=== PATIENT | male | born 1935 | race Caucasian/White ===

== ENCOUNTER → 2016-04-29 | Day surgery (SDC) | payer OTHER ==
[2016-04-23 07:38] VITALS: Ht 177.8 cm; Wt 93.2 kg
[~2016-04-29] VITALS: Ht 177.8 cm; Wt 93.2 kg
[~2016-04-29] MED LIST: 500ML BSS 0.3ML EPI 1:1000PF IRRIG ONE; ACETAMINOPHEN 325 MG TAB PO PRN; AMVISC PLUS 0.8ML SYRINGE INT OCU ONE; ATROPINE SULFATE 0.1 MG/ML 5ML SYR IV PRN; BROM0.0911 OPL; BSS FLUSH ONE; ENDOCOAT 0.85ML SYRINGE INT OCU ONE; EpHEDrine SULFATE INJ 50 MG/ML AMP IV PRN; EpINEphrine INJ 1MG/ML AMP 1 MG/ML AMP ONE; FENTANYL CITRATE INJ 50 MCG/1 ML 2 ML VIAL ONE; GLUCTAB18 PO; LACTATED RINGER'S 1000ML 500 ML IV SCH; LIDOCAINE 4% OP SOLN DROP CHARGE ONE; LIDOCAINE 4% OP SOLN DROP CHARGE OPL SCH; LIDOCAINE HCL 1% MPF 2 ML VIAL ONE; LISI40TA PO; MIDAZOLAM HCL 1 MG/ML 2ML VIAL ONE; MIX: 4ML BSS 1ML EPI 1:1000 PF TOP ONE; MOXIFLOXACIN OPH SOLN PER DROP CHARGE ONE; OFLO0.3S OP; POVIDONE-IODINE OP SOLN 30 ML BTL ONE; PRED1SUS3 OPL; PROPARACAINE 0.5% OP SOLN PER DROP CHARGE OPL SCH; RIVA1TAB4 PO; SIMV40TA2 PO; TOBRAMYCIN/DEXAMETHASONE OPH OINT PER APPLN CHARGE ONE; [UNRECOGNIZED DRUG - CODE] PO
[2016-04-29] MEDS: PHENYLEPHRINE HCL 2.5% OP SOLN PER DROP CHARGE OPL SCH ×3 (06:38→06:48)
[2016-04-29] MEDS: TROPICAMIDE 1% OP SOLN PER DROP CHARGE OPL SCH ×3 (06:39→06:50)
[2016-04-29] MEDS: CYCLOPENTOLATE HCL 1% OP SOLN PER DROP CHARGE OPL SCH ×3 (06:40→06:52)
--- NOTE | 2016-04-29 06:40 | History & Physical Bridge - [place] ---
H&P Re-Evaluation Bridge Note: I have examined the patient, reviewed the History & Physical and in the interval since the performance of the History & Physical I have noted the following changes of clinical significance: No changes noted
[2016-04-29] MEDS: MOXIFLOXACIN OPH SOLN PER DROP CHARGE OPL SCH ×3 (06:41→06:53)
--- NOTE | 2016-04-29 07:31 | [facility] Post Operative Brief Note ---
Immediate Operative Summary Operative Date Apr 29, 2016. Pre-Operative Diagnosis Left Eye Cataract Post-Operative Diagnosis Same Procedure(s) Performed Left Cataract Phacoemulsification With Intraocular Lens Implant Surgeon Dr Garcia Senior Marketing Coordinator Surgeon(s) None Estimated Blood Loss 0ml Findings left cataract Specimens None Complication(s) None Disposition
[2016-04-29 07:32] VITALS: TEMP 36.9
--- NOTE | 2016-04-29 07:32 | [facility] Operative Report ---
Operative Report Phaco with monofocal IOL DATE OF OPERATION: 04/29/16 PREOPERATIVE DIAGNOSIS: Senile nuclear cataract, left eye POSTOPERATIVE DIAGNOSIS: Senile nuclear cataract, left eye PROCEDURE PERFORMED: Phacoemulsification with intraocular lens implantation, left eye SURGEON: Dr. Rip Garcia ANESTHESIA: Topical with 1% intracameral lidocaine and monitored anesthesia care COMPLICATIONS: None DESCRIPTION OF PROCEDURE: After positively identifying the patient both verbally and by wristband in the preoperative area, the left eye was marked as the operative eye. The patient was then brought back to the operating room by the anesthesia and nursing staff where they were given a drop of Lidocaine and betadine into the operative eye. They were then sterilely prepped and draped in the standard fashion typical for ophthalmic surgery. Steri-strips were placed along the upper eyelids to keep the lashes back, and a lid speculum was placed into the operative eye. At this point, a documented time out was performed with members of the ophthalmology, nursing, and anesthesia staffs all agreeing upon the correct patient, correct location for surgery, correct procedure, and correct type and power of intraocular lens to be implanted. The microscope was then swung into position. First, a paracentesis wound was made using a sideport blade. Then, in sequence, 1% preservative-free lidocaine followed by Endocoat viscoelastic was injected into the anterior chamber. Next , the main incision was made with a keratome blade in triplanar fashion. A sharp cystotome was introduced into the eye and used to create a tear in the anterior capsule, which was directed into a continuous curvilinear capsulorrhexis using Utrata forceps. Hydrodissection was then performed with BSS on a flat-tip cannula. Next, the phacoemulsification handpiece was introduced into the eye and used to remove the nucleus in a [id number] fashion. This was done without complication and then the irrigation-aspiration handpiece was introduced into the eye and used to remove all remaining cortical and epinuclear material. Amvisc was then injected into the anterior chamber as well as into the capsular bag and using the lens injector system, an MX60 18.0 D lens, serial number [id number], and expiration date 05/2017 was injected into the capsular bag and rotated into the correct position. Next, the irrigation- aspiration handpiece was used to remove all remaining Amvisc. BSS was used to hydrate the main wound, and then BSS was injected into the paracentesis site to reach physiologic pressure and then the main wound was checked and found to be watertight. The patient was given drops of Vigamox and Tobradex ointment into the operative eye, and then the surrounding area was cleaned and dried. A clear plastic shield was placed over the eye and the patient was then sat up and taken from the operating room by the anesthesia staff having tolerated the procedure well and suffering no complications. DISPOSITION: The patient was returned to the recovery room in stable condition. I attest to the content of the Intraoperative Record and any orders documented therein. Any exceptions are noted below.
--- NOTE | 2016-04-29 07:33 | Discharge Instructions-SurgCtr ---
Discharge Instructions Visit Reason for Visit: Cataract Left Eye Discharge Discharge Diagnosis / Problem: left cataract Discharge Goals Goal(s): Decrease discomfort, Improve function Activity Recommendations Activity Limitations: as noted below Anesthesia . Post Anesthesia Instructions: If you have had General Anesthesia or IV Sedation: * Do not drive today. * Resume driving when surgeon permits. * Do not make important decisions or sign legal documents today. * Call surgeon for: 1. Temperature elevations greater than 101 degrees F. 2. Uncontrollable pain. 3. Excessive bleeding. 4. Persistent nausea and vomiting. 5. Medication intolerance (nausea, vomiting or rash). * For nausea and vomiting use only clear liquids such as: tea, soda, bouillon until nausea subsides, then gradually increase diet as tolerated. * If you have any concerns or questions, call your surgeon's office. If physician is unavailable and it is an emergency, call 911 or go to the nearest emergency room. . Instructions / Follow-Up Instructions / Follow-Up ACTIVITY RECOMMENDATIONS: * Light activities. * You may walk outside, read, watch television. * You may notice redness on the white part of the eye and some blurry vision - this is normal. MEDICATIONS: Resume previous medications unless instructed otherwise by your surgeon. Start all eye drops at 9:30 am today: * Eye drops (today): Prednisone - one drop in operative eye every 2 hours while awake Ofloxacin - one drop in operative eye every 2 hours while awake Bromfenac - one drop in operative eye daily SPECIAL CARE INSTRUCTIONS: * Tape plastic shield over eye to sleep at night. Call your doctor at with any concerns or problems. FOLLOW UP VISIT: Follow-up with Dr Garcia at [facility] as scheduled. Diet Recommendations Home Diet: no limitations Procedures Procedures Performed: Left Cataract Phacoemulsification With Intraocular Lens Implant Pending Studies Studies pending at discharge: no Medical Emergencies . Who to Call and When: Medical Emergencies: If at any time you feel your situation is an emergency, please call 911 immediately. . Non-Emergent Contact Non-Emergency issues call your: Surgeon . . "Provider Documentation" section prepared by Rip Garcia.
[2016-04-29 07:52] VITALS: BP 151/78; PULSE 76; O2SAT 98
--- NOTE | 2016-04-29 08:01 | Anesthesia Progress Nt - [facility] ---
Anesthesia Post Op Note Date & Time Apr 29, 2016 at 08:01 Vital Signs Pain Intensity: 0 Vital Signs Past 12 Hours Date Time Temp Pulse Resp B/P Pulse Ox O2 Delivery O2 Flow Rate FiO2 04/29/16 07:52 76 16 151/78 98 Room Air 04/29/16 07:32 36.9 74 16 143/84 95 Room Air 04/29/16 06:28 36.2 84 18 171/98 95 Room Air Notes Mental Status: alert / awake / arousable, participated in evaluation Pt Amnestic to Procedure: Yes Nausea / Vomiting: adequately controlled Pain: adequately controlled Airway Patency, RR, SpO2: stable & adequate BP & HR: stable & adequate Hydration State: stable & adequate Anesthetic Complications: no major complications apparent
== END | disposition home or self-care (01) ==
LOC: X.SURG 06:18
PROVIDERS: ATTEND Ophthalmology
DX: H25.12 Age-related nuclear cataract, left eye (principal); H35.30 Unspecified macular degeneration; I10 Essential (primary) hypertension; E78.5 Hyperlipidemia, unspecified; Z98.890 Other specified postprocedural states

== ENCOUNTER → 2016-05-13 | Day surgery (SDC) | payer OTHER ==
[2016-05-07 15:14] VITALS: Ht 177.8 cm; Wt 93.2 kg
[~2016-05-13] VITALS: Ht 177.8 cm; Wt 93.2 kg
[~2016-05-13] MED LIST changes: -FENTANYL CITRATE INJ 50 MCG/1 ML 2 ML VIAL ONE; -LIDOCAINE 4% OP SOLN DROP CHARGE OPL SCH; +LIDOCAINE 4% OP SOLN DROP CHARGE OPR SCH; -OFLO0.3S OP; -PROPARACAINE 0.5% OP SOLN PER DROP CHARGE OPL SCH; +PROPARACAINE 0.5% OP SOLN PER DROP CHARGE OPR SCH
[2016-05-13] MEDS: PHENYLEPHRINE HCL 2.5% OP SOLN PER DROP CHARGE OPR SCH ×3 (07:12→07:22)
[2016-05-13] MEDS: TROPICAMIDE 1% OP SOLN PER DROP CHARGE OPR SCH ×3 (07:13→07:23)
[2016-05-13] MEDS: CYCLOPENTOLATE HCL 1% OP SOLN PER DROP CHARGE OPR SCH ×3 (07:14→07:24)
[2016-05-13] MEDS: MOXIFLOXACIN OPH SOLN PER DROP CHARGE OPR SCH ×3 (07:15→07:25)
--- NOTE | 2016-05-13 08:51 | [facility] Operative Report ---
Operative Report Phaco with monofocal IOL DATE OF OPERATION: 05/13/16 PREOPERATIVE DIAGNOSIS: Senile nuclear cataract, right eye POSTOPERATIVE DIAGNOSIS: Senile nuclear cataract, right eye PROCEDURE PERFORMED: Phacoemulsification with intraocular lens implantation, right eye SURGEON: Dr. Rip Garcia ANESTHESIA: Topical with 1% intracameral lidocaine and monitored anesthesia care COMPLICATIONS: None DESCRIPTION OF PROCEDURE: After positively identifying the patient both verbally and by wristband in the preoperative area, the right eye was marked as the operative eye. The patient was then brought back to the operating room by the anesthesia and nursing staff where they were given a drop of Lidocaine and betadine into the operative eye. They were then sterilely prepped and draped in the standard fashion typical for ophthalmic surgery. Steri-strips were placed along the upper eyelids to keep the lashes back, and a lid speculum was placed into the operative eye. At this point, a documented time out was performed with members of the ophthalmology, nursing, and anesthesia staffs all agreeing upon the correct patient, correct location for surgery, correct procedure, and correct type and power of intraocular lens to be implanted. The microscope was then swung into position. First, a paracentesis wound was made using a sideport blade. Then, in sequence, 1% preservative-free lidocaine followed by Endocoat viscoelastic was injected into the anterior chamber. Next , the main incision was made with a keratome blade in triplanar fashion. A sharp cystotome was introduced into the eye and used to create a tear in the anterior capsule, which was directed into a continuous curvilinear capsulorrhexis using Utrata forceps. Hydrodissection was then performed with BSS on a flat-tip cannula. Next, the phacoemulsification handpiece was introduced into the eye and used to remove the nucleus in a [id number]-[id number] fashion. This was done without complication and then the irrigation-aspiration handpiece was introduced into the eye and used to remove all remaining cortical and epinuclear material. Amvisc was then injected into the anterior chamber as well as into the capsular bag and using the lens injector system, an MX60 18.0 D lens, serial number [id number], and expiration date 09/2018 was injected into the capsular bag and rotated into the correct position. Next, the irrigation- aspiration handpiece was used to remove all remaining Amvisc. BSS was used to hydrate the main wound, and then BSS was injected into the paracentesis site to reach physiologic pressure and then the main wound was checked and found to be watertight. The patient was given drops of Vigamox and Tobradex ointment into the operative eye, and then the surrounding area was cleaned and dried. A clear plastic shield was placed over the eye and the patient was then sat up and taken from the operating room by the anesthesia staff having tolerated the procedure well and suffering no complications. DISPOSITION: The patient was returned to the recovery room in stable condition. I attest to the content of the Intraoperative Record and any orders documented therein. Any exceptions are noted below.
--- NOTE | 2016-05-13 08:51 | [facility] Post Operative Brief Note ---
Immediate Operative Summary Operative Date May 13, 2016. Pre-Operative Diagnosis Right Eye Cataract Post-Operative Diagnosis Same Procedure(s) Performed Right Cataract Phacoemulsification With Intraocular Lens Implant Surgeon Dr Garcia Industrial Roof Plumber Surgeon(s) None Estimated Blood Loss 0ml Findings right cataract Specimens None Complication(s) None Disposition
[2016-05-13 08:52] VITALS: TEMP 36.6
--- NOTE | 2016-05-13 08:53 | Discharge Instructions-SurgCtr ---
Discharge Instructions Visit Reason for Visit: Cataract Right Eye Discharge Discharge Diagnosis / Problem: right cataract Discharge Goals Goal(s): Decrease discomfort, Improve function Activity Recommendations Activity Limitations: as noted below Anesthesia . Post Anesthesia Instructions: If you have had General Anesthesia or IV Sedation: * Do not drive today. * Resume driving when surgeon permits. * Do not make important decisions or sign legal documents today. * Call surgeon for: 1. Temperature elevations greater than 101 degrees F. 2. Uncontrollable pain. 3. Excessive bleeding. 4. Persistent nausea and vomiting. 5. Medication intolerance (nausea, vomiting or rash). * For nausea and vomiting use only clear liquids such as: tea, soda, bouillon until nausea subsides, then gradually increase diet as tolerated. * If you have any concerns or questions, call your surgeon's office. If physician is unavailable and it is an emergency, call 911 or go to the nearest emergency room. . Instructions / Follow-Up Instructions / Follow-Up ACTIVITY RECOMMENDATIONS: * Light activities. * You may walk outside, read, watch television. * You may notice redness on the white part of the eye and some blurry vision - this is normal. MEDICATIONS: Resume previous medications unless instructed otherwise by your surgeon. Start all eye drops at 11 am today: * Eye drops (today): Prednisone - one drop in operative eye every 2 hours while awake Ofloxacin - one drop in operative eye every 2 hours while awake Bromfenac - one drop in operative eye daily SPECIAL CARE INSTRUCTIONS: * Tape plastic shield over eye to sleep at night. Call your doctor at with any concerns or problems. FOLLOW UP VISIT: Follow-up with Dr Garcia at [facility] as scheduled. Diet Recommendations Home Diet: no limitations Procedures Procedures Performed: Right Cataract Phacoemulsification With Intraocular Lens Implant Pending Studies Studies pending at discharge: no Medical Emergencies . Who to Call and When: Medical Emergencies: If at any time you feel your situation is an emergency, please call 911 immediately. . Non-Emergent Contact Non-Emergency issues call your: Surgeon . . "Provider Documentation" section prepared by Rip Garcia.
[2016-05-13 09:05] VITALS: BP 156/81; PULSE 69; O2SAT 95
--- NOTE | 2016-05-13 09:17 | Anesthesia Progress Nt - [facility] ---
Anesthesia Post Op Note Date & Time May 13, 2016 at 09:17 Vital Signs Pain Intensity: 0 Vital Signs Past 12 Hours Date Time Temp Pulse Resp B/P Pulse Ox O2 Delivery O2 Flow Rate FiO2 05/13/16 09:05 69 16 156/81 95 Room Air 05/13/16 08:52 36.6 74 20 155/77 95 Room Air 05/13/16 07:06 36.5 75 20 179/91 94 Room Air Notes Mental Status: alert / awake / arousable, participated in evaluation Pt Amnestic to Procedure: Yes Nausea / Vomiting: adequately controlled Pain: adequately controlled Airway Patency, RR, SpO2: stable & adequate BP & HR: stable & adequate Hydration State: stable & adequate Anesthetic Complications: no major complications apparent
== END | disposition home or self-care (01) ==
LOC: X.SURG 06:43
PROVIDERS: ATTEND Ophthalmology
DX: H25.11 Age-related nuclear cataract, right eye (principal); Z98.42 Cataract extraction status, left eye; H35.30 Unspecified macular degeneration; I10 Essential (primary) hypertension; E78.5 Hyperlipidemia, unspecified

== ENCOUNTER → 2016-09-15 | Outpatient (CLI) | payer OTHER ==
[~2016-09-15] MED LIST changes: -500ML BSS 0.3ML EPI 1:1000PF IRRIG ONE; -ACETAMINOPHEN 325 MG TAB PO PRN; -AMVISC PLUS 0.8ML SYRINGE INT OCU ONE; -ATROPINE SULFATE 0.1 MG/ML 5ML SYR IV PRN; -BSS FLUSH ONE; -ENDOCOAT 0.85ML SYRINGE INT OCU ONE; -EpHEDrine SULFATE INJ 50 MG/ML AMP IV PRN; -EpINEphrine INJ 1MG/ML AMP 1 MG/ML AMP ONE; -LACTATED RINGER'S 1000ML 500 ML IV SCH; -LIDOCAINE 4% OP SOLN DROP CHARGE ONE; -LIDOCAINE 4% OP SOLN DROP CHARGE OPR SCH; -LIDOCAINE HCL 1% MPF 2 ML VIAL ONE; -MIDAZOLAM HCL 1 MG/ML 2ML VIAL ONE; -MIX: 4ML BSS 1ML EPI 1:1000 PF TOP ONE; -MOXIFLOXACIN OPH SOLN PER DROP CHARGE ONE; -POVIDONE-IODINE OP SOLN 30 ML BTL ONE; -PROPARACAINE 0.5% OP SOLN PER DROP CHARGE OPR SCH; -TOBRAMYCIN/DEXAMETHASONE OPH OINT PER APPLN CHARGE ONE
[2016-09-15 12:27] LABS: BASO % 0.6 %; BASO ABS # 0.03 K/uL (0-0.2); COMPLETE YES; EOS % 6.2 %; HEMATOCRIT 41.4 % (42-52); IG% 0.2 %; LYMPH % 25.4 %; LYMPH ABS # 1.36 K/uL (1.2-3.4); MEAN CELL VOLUME 89.8 fL (80-100); MEAN CORPUSCULAR HEMOGLOBIN 29.9 pg (25-34); MEAN CORPUSCULAR HGB CONC 33.3 g/dl (32-36); MONO % 10.6 %; PLATELET COUNT 218 K/uL (130-400); RED BLOOD COUNT 4.61 M/uL (4.7-6.1); WHITE BLOOD COUNT 5.36 K/uL (4.8-10.8)
[2016-09-15 13:18] LABS: ESTIMATED AVERAGE GLUCOSE 114 mg/dl; HA1C FLAG Normal (Normal)
[2016-09-15 13:32] LABS: ALT/SGPT 22 U/L (12-78); AST/SGOT 13 U/L (15-37); BLOOD UREA NITROGEN 25 mg/dl (7-18); BUN/CREATININE RATIO 23.1 (10-20); CALCIUM 8.6 mg/dl (8.5-10.1); CARBON DIOXIDE 24 mmol/L (21-32); CHLORIDE 110 mmol/L (98-107); GLUCOSE 96 mg/dl (70-99); POTASSIUM 4.3 mmol/L (3.5-5.1); SODIUM 144 mmol/L (136-145)
[2016-09-15 13:43] LABS: ALB/GLOB RATIO 1.3 (0.9-2); ALKALINE PHOSPHATASE 53 U/L (45-117); CHOLESTEROL 169 mg/dl (0-200); HDL CHOLESTEROL 56 mg/dl; LDL CHOLESTEROL CALCULATED 97 mg/dl; THYROID STIMULATING HORMONE 0.884 uIu/ml (0.300-4.500); TRIGLYCERIDES 78 mg/dl (0-150); VERY LOW DENSITY LIPOPROT CALC 16 mg/dl
--- NOTE | 2016-09-22 13:04 | CODING QUERY MEDICAL NECESSITY ---
SUPPORTING DIAGNOSIS NEEDED A supporting diagnosis is required for the test/procedure performed on this patient in order for us to be reimbursed by the patient's insurance. Please provide a supporting diagnosis for the following test/procedure listed below next to the test name along with your signature. *If there is no additional diagnosis for this patient that would support the following test/procedure please document that below next to the test/procedure. Test(s)/Procedure(s) that require a supporting diagnosis: * HEMOGLOBIN A1C DIAGNOSIS: Provider Signature: Date: Thank you Geneva Pulliam PHD [employer] Once completed, please kindly fax back to [phone] For questions please call [phone]
== END | disposition home or self-care (01) ==
LOC: C.LABPBG 09:14
PROVIDERS: ATTEND Internal Medicine
DX: R91.8 Other nonspecific abnormal finding of lung field (principal); Z13.1 Encounter for screening for diabetes mellitus

== ENCOUNTER 2019-04-28 03:46 | Inpatient (IN) ==
[2019-04-28] MEDS ORDERED: LABETALOL HCL IV 5 MG/ML 20ML IV STA ×3 (03:53→05:31)
[2019-04-28] MEDS ORDERED: SODIUM CHLORIDE 0.9% 1000ML 1,000 ML IV SCH (04:00)
[2019-04-28 04:11] LABS: Hematocrit (blood only) 43.1 % (42-52); Hemoglobin 14.6 g/dL (14.0-18.0); Mean Corpuscular Hemoglobin 30.1 pg (25-34); Mean Corpuscular Hgb Conc 33.9 g/dL (32-36); Mean Corpuscular Volume 88.9 fL (80-100); Mean Platelet Volume 9.9 fL (7.4-10.4); Platelet Count 213 K/uL (130-400); RDW Standard Deviation 42.1 fL (36.4-46.3); Red Blood Count 4.85 M/uL (4.7-6.1); White Blood Count 12.97 K/uL (4.8-10.8)
[2019-04-28 04:23] LABS: Base Excess VBG -2.2 mEq/L; Oxygen Saturation VBG 68.6 %; pH VBG 7.3 (7.36-7.41)
[2019-04-28 04:25] LABS: Partial Thromboplastin Ratio 0.8; Partial Thromboplastin Time 21.9 Seconds (21.0-31.0); Prothrombin Time 10.2 Seconds (9.0-12.0)
[2019-04-28 04:30] LABS: Appearance Urine Clear (Clear); Bacteria Urine Automated Negative (Negative); Bilirubin Urine Negative (Negative); Blood Urine 1+ (Negative); Color Urine Yellow; Glucose Urine UA 1+ (Negative); Ketones Urine Negative (Negative); Leukocyte Esterase Urine Negative (Negative); Nitrite Urine Negative (Negative); Protein Urine 2+ (Negative); RBC Urine Automated 0-4 /hpf (0-4); Specific Gravity Urine 1.012 (1.000-1.030); Urobilinogen Urine Negative (Negative)
[2019-04-28 04:34] LABS: Alanine Aminotransferase 23 U/L (12-78); Albumin Level 3.8 gm/dl (3.4-5.0); Aspartate Aminotransferase 19 U/L (15-37); BUN Creatinine Ratio 20.5 (10-20); Blood Urea Nitrogen 24 mg/dl (7-18); Calcium 8.3 mg/dl (8.5-10.1); Carbon Dioxide 25 mmol/L (21-32); Chloride 109 mmol/L (98-107); Est GFR (African American) 65.5; Est GFR (Non-African American) 56.5; Glucose 139 mg/dl (70-99); Magnesium 2.1 mg/dl (1.8-2.4); Potassium 3.9 mmol/L (3.5-5.1); Sodium 140 mmol/L (136-145)
[2019-04-28 04:38] LABS: Basophils # (auto) 0.02 K/uL (0-0.2); Basophils % (auto) 0.2 %; Eosinophils # (auto) 0.07 K/uL (0-0.5); Eosinophils % (auto) 0.5 %; Immature Granulocytes # (auto) 0.04 K/uL (0.00-0.02); Immature Granulocytes % (auto) 0.3 %; Lymphocytes # (auto) 0.86 K/uL (1.2-3.4); Lymphocytes % (auto) 6.6 %; Monocytes # (auto) 0.79 K/uL (0.11-0.59); Monocytes % (auto) 6.1 %; Neutrophils # (auto) 11.19 K/uL (1.4-6.5); Neutrophils % (auto) 86.3 %; Ovalocytes 1+
[2019-04-28 04:39] LABS: Albumin Globulin Ratio 1.1 (0.9-2); Alkaline Phosphatase 56 U/L (45-117); Bilirubin,Total 0.5 mg/dl (0.2-1); Creatine Kinase 111 U/L (39-308); Globulin 3.5 gm/dl (2.5-4.0); Total Protein 7.3 gm/dl (6.4-8.2); Troponin I 0.029 ng/ml (0-0.045)
[2019-04-28 04:46] LABS: Amphetamines+Metham, Urine Neg (Neg); Barbiturates, Urine Neg (Neg); Benzodiazepine, Urine Neg (Neg); Cocaine, Urine Neg (Neg); MDMA (Ecstacy), Urine Neg (Neg); Methadone, Urine Neg (Neg); Opiate, Urine Neg (Neg); Phencyclidine, Urine Neg (Neg)
[2019-04-28] MEDS ORDERED: LORazepam 0.5 MG/1 ML VIAL IV STA (05:12)
[2019-04-28] MEDS ORDERED: ONDANSETRON INJ 2 MG/ML 2 ML VIAL IV STA (05:12)
--- NOTE | 2019-04-28 05:19 | Emergency Department Note ---
Entered by Riky Mccoy acting as a scribe for History of Present Illness General Chief complaint: Altered Mental Status Stated complaint: ALTERED MENTAL STATUS Time Seen by Provider: 04/28/19 03:53 Source: EMS Limitations: altered mental status History of Present Illness Onset (ago): day(s) (this morning) Location: head Pain Consistency: + constant Exacerbated By: + other (AMS) Associated symptoms: + other (Positive for vomiting and chills.) The patient is an 83 year old male who presents to the emergency department with complaints of constant AMS beginning this morning. Per EMS, the patient was found lying on his right side on the bathroom floor this morning. He states that the patients last saw him at 2300 last night, and he notes that the patients is unsure how long he was on the ground after he fell. He reports that the patient was found to be altered, and he states that the patient vomited twice. He notes that the patient had the chills yesterday. He reports that the patient is on Xarelto. He reports that the patient has a history of Parkinsons and hypertension. HPI limited secondary to AMS. Home Medications Home Medications Medication Instructions Recorded Confirmed Type lisinopril 40 mg tablet 40 mg PO DAILY #90 tab 10/14/18 04/28/19 Rx bisoprolol 5 1 tab PO DAILY #90 tab 10/26/18 04/28/19 Rx mg-hydrochlorothiazide 6.25 mg tablet simvastatin 40 mg tablet 40 mg PO DAILY #90 tab 10/28/18 04/28/19 Rx rivaroxaban 20 mg tablet 20 mg PO DAILY #90 tab 01/23/19 04/28/19 Rx Allergies Allergy/AdvReac Type Severity Reaction Status Date / Time No Known Allergies Allergy Unverified 04/28/19 04:02 Past Med/Surg History Medical History (Updated 04/28/19 @ 10:26 by BARTOLO Payton) Benign essential tremor Bleeding on Coumadin (Resolved) Diastasis recti Generalized osteoarthritis of multiple sites Goals of care, counseling/discussion Hearing loss History of pulmonary embolism Hypercoagulable state, primary Hyperhomocysteinemia Hypertension (Acute) Laceration Localized primary osteoarthritis of lower leg Lyme disease, acute (Resolved) Multiple pulmonary nodules Nasal congestion Parkinsons Pleural plaque with presence of asbestos Postoperative bleeding from incision Renal lesion Sensorineural hearing loss (SNHL) of 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 Physical Exam Vital Signs Vital Signs - 24 hr 04/28/19 03:39 04/28/19 04:16 04/28/19 04:17 Temperature 36.1 C L Temperature Source Rectal Pulse Rate 83 93 H 92 H Pulse Rate [Right] Pulse Rate from SpO2 Sensor 92 H Pulse Rhythm [Right] Respiratory Rate 22 25 H 21 Respiratory Effort / Characteristics Non-Labored Spontaneous Respiratory Depth Normal Blood Pressure 227/118 H 260/113 H Blood Pressure [Right Arm] Blood Pressure Mean 154 187 Blood Pressure Mean [Right Arm] Blood Pressure Position Lying Blood Pressure Position [Right Arm] Pulse Oximetry 99 100 Oxygen Delivery Method Non-rebreather Oxygen Flow Rate 15 Sepsis Recent Fever Within 48 Hours No Sepsis New/Unexplained Change in Mental Status No Sepsis Action Taken by Nursing No Action Required 04/28/19 04:24 04/28/19 04:25 04/28/19 04:30 Temperature Temperature Source Pulse Rate 67 83 Pulse Rate [Right] 82 Pulse Rate from SpO2 Sensor 75 83 Pulse Rhythm [Right] Irregular Respiratory Rate 24 24 24 Respiratory Effort / Characteristics Respiratory Depth Deep Blood Pressure 192/142 H 194/107 H Blood Pressure [Right Arm] 192/142 H Blood Pressure Mean 155 145 Blood Pressure Mean [Right Arm] 158 Blood Pressure Position Blood Pressure Position [Right Arm] Lying Pulse Oximetry 100 100 100 Oxygen Delivery Method Non-rebreather Oxygen Flow Rate 15 Sepsis Recent Fever Within 48 Hours Sepsis New/Unexplained Change in Mental Status Sepsis Action Taken by Nursing 04/28/19 04:45 04/28/19 05:00 04/28/19 05:01 Temperature Temperature Source Pulse Rate 85 82 82 Pulse Rate [Right] Pulse Rate from SpO2 Sensor 85 82 82 Pulse Rhythm [Right] Respiratory Rate 26 H 25 H 20 Respiratory Effort / Characteristics Respiratory Depth Blood Pressure 194/105 H 198/98 H 198/98 H Blood Pressure [Right Arm] Blood Pressure Mean 117 131 133 Blood Pressure Mean [Right Arm] Blood Pressure Position Blood Pressure Position [Right Arm] Pulse Oximetry 100 100 100 Oxygen Delivery Method Oxygen Flow Rate Sepsis Recent Fever Within 48 Hours Sepsis New/Unexplained Change in Mental Status Sepsis Action Taken by Nursing 04/28/19 05:15 04/28/19 05:22 04/28/19 05:30 Temperature Temperature Source Pulse Rate 78 86 86 Pulse Rate [Right] Pulse Rate from SpO2 Sensor 78 87 86 Pulse Rhythm [Right] Respiratory Rate 25 H 28 H 28 H Respiratory Effort / Characteristics Respiratory Depth Blood Pressure 218/110 H Blood Pressure [Right Arm] Blood Pressure Mean 125 Blood Pressure Mean [Right Arm] Blood Pressure Position Blood Pressure Position [Right Arm] Pulse Oximetry 100 100 100 Oxygen Delivery Method Oxygen Flow Rate Sepsis Recent Fever Within 48 Hours Sepsis New/Unexplained Change in Mental Status Sepsis Action Taken by Nursing 04/28/19 05:31 04/28/19 05:38 04/28/19 05:39 Temperature Temperature Source Pulse Rate 88 85 83 Pulse Rate [Right] Pulse Rate from SpO2 Sensor 87 85 78 Pulse Rhythm [Right] Respiratory Rate 25 H 27 H 26 H Respiratory Effort / Characteristics Respiratory Depth Blood Pressure 212/99 H 202/96 H Blood Pressure [Right Arm] Blood Pressure Mean 121 147 Blood Pressure Mean [Right Arm] Blood Pressure Position Blood Pressure Position [Right Arm] Pulse Oximetry 99 99 99 Oxygen Delivery Method Oxygen Flow Rate Sepsis Recent Fever Within 48 Hours Sepsis New/Unexplained Change in Mental Status Sepsis Action Taken by Nursing 04/28/19 05:45 04/28/19 06:00 04/28/19 06:15 Temperature Temperature Source Pulse Rate 75 82 81 Pulse Rate [Right] Pulse Rate from SpO2 Sensor 80 81 81 Pulse Rhythm [Right] Respiratory Rate 24 25 H 23 Respiratory Effort / Characteristics Respiratory Depth Blood Pressure 193/93 H Blood Pressure [Right Arm] Blood Pressure Mean 147 Blood Pressure Mean [Right Arm] Blood Pressure Position Blood Pressure Position [Right Arm] Pulse Oximetry 98 99 99 Oxygen Delivery Method Oxygen Flow Rate Sepsis Recent Fever Within 48 Hours Sepsis New/Unexplained Change in Mental Status Sepsis Action Taken by Nursing 04/28/19 06:30 04/28/19 06:31 04/28/19 06:32 Temperature Temperature Source Pulse Rate 82 85 81 Pulse Rate [Right] Pulse Rate from SpO2 Sensor 82 83 83 Pulse Rhythm [Right] Respiratory Rate 24 22 24 Respiratory Effort / Characteristics Respiratory Depth Blood Pressure 178/86 H Blood Pressure [Right Arm] Blood Pressure Mean 93 Blood Pressure Mean [Right Arm] Blood Pressure Position Blood Pressure Position [Right Arm] Pulse Oximetry 98 98 99 Oxygen Delivery Method Oxygen Flow Rate Sepsis Recent Fever Within 48 Hours Sepsis New/Unexplained Change in Mental Status Sepsis Action Taken by Nursing 04/28/19 06:45 04/28/19 07:00 04/28/19 07:01 Temperature Temperature Source Pulse Rate 82 89 70 Pulse Rate [Right] Pulse Rate from SpO2 Sensor 82 88 75 Pulse Rhythm [Right] Respiratory Rate 28 H 28 H 28 H Respiratory Effort / Characteristics Respiratory Depth Blood Pressure 221/97 H 221/97 H Blood Pressure [Right Arm] Blood Pressure Mean 138 136 Blood Pressure Mean [Right Arm] Blood Pressure Position Blood Pressure Position [Right Arm] Pulse Oximetry 99 99 99 Oxygen Delivery Method Oxygen Flow Rate Sepsis Recent Fever Within 48 Hours Sepsis New/Unexplained Change in Mental Status Sepsis Action Taken by Nursing 04/28/19 07:15 04/28/19 07:30 04/28/19 07:31 Temperature Temperature Source Pulse Rate 84 84 85 Pulse Rate [Right] Pulse Rate from SpO2 Sensor 79 84 85 Pulse Rhythm [Right] Respiratory Rate 28 H 24 23 Respiratory Effort / Characteristics Respiratory Depth Blood Pressure 155/81 H Blood Pressure [Right Arm] Blood Pressure Mean 104 Blood Pressure Mean [Right Arm] Blood Pressure Position Blood Pressure Position [Right Arm] Pulse Oximetry 98 96 97 Oxygen Delivery Method Oxygen Flow Rate Sepsis Recent Fever Within 48 Hours Sepsis New/Unexplained Change in Mental Status Sepsis Action Taken by Nursing 04/28/19 08:00 Temperature Temperature Source Pulse Rate 85 Pulse Rate [Right] Pulse Rate from SpO2 Sensor 85 Pulse Rhythm [Right] Respiratory Rate 22 Respiratory Effort / Characteristics Respiratory Depth Blood Pressure 140/74 Blood Pressure [Right Arm] Blood Pressure Mean 92 Blood Pressure Mean [Right Arm] Blood Pressure Position Blood Pressure Position [Right Arm] Pulse Oximetry 96 Oxygen Delivery Method Oxygen Flow Rate Sepsis Recent Fever Within 48 Hours Sepsis New/Unexplained Change in Mental Status Sepsis Action Taken by Nursing GENERAL: alert, well appearing, well nourished, no distress, non-toxic EYE EXAM: normal conjunctiva, pupils equal bilaterally; however, minimally reactive. OROPHARYNX: no exudate, no erythema, lips, buccal mucosa, and tongue normal and mucous membranes are moist NECK: supple, no nuchal rigidity, no adenopathy, non-tender LUNGS: Clear to auscultation. Normal chest wall mechanics. Sonorous respirations. No wheezes, rhonchi, and rales. HEART: no murmurs, S1 normal and S2 normal ABDOMEN: abdomen soft, non-tender, normo-active bowel sounds, no masses, no rebound or guarding. BACK: Back is symmetrical on inspection and there is no deformity, no midline tenderness, no CVA tenderness. SKIN: no rashes and no bruising UPPER EXTREMITIES: upper extremities are grossly normal. Nml pulses b/l. LOWER EXTREMITIES: No pitting edema. Nml pulses b/l. NEURO EXAM: Patient spontaneously moving all 4 extremities, no obvious facial droop,, does not arouse to voice, will not follow commands, does not localize pain but does withdraw. Course Course 0347: The patient was evaluated in room B1. A complete history and physical exam was performed. 0411: I spoke to the patient's family. They state that the patient has not had any recent medication changes or recent illnesses. They note that the patient has recently been complaining of his legs feeling cold. They deferred the decision regarding intubation and aggressive treatment until a third family member arrives. 0426: I reevaluated the patient. 0429: I received a call from [facility] regarding the patient's head CT. 0440: I rechecked the patient. I showed his family the patient's head CT pictures. They are still waiting for an additional family member. 0455: I rechecked the patient. His son is at bedside and confirms no aggressive treatment and no intubation. 0516: Upon reevaluation, the patient is stable. I discussed the findings and the treatment plan with the patient. He expresses agreement and understanding. I spoke [place]. Root [place] [facility] [place]. The patient will be evaluated for further management. Consultations Consultation #1: I reviewed the patient's case with Dr. Root - Hospital[place], [facility] [place] He will evaluate the patient for further management. Time: 05:16 Administered Medications Atropine Sulfate (Atropine Sulfate 1% Oph Soln) 4 drops SL Q1H PRN PRN Reason: Secretions or Pulm Congestion Stop: 05/28/19 10:17 Last Admin: 04/28/19 19:26 Dose: 4 drops Documented by: [id number] Admin: 04/28/19 12:01 Dose: 4 drops Documented by: [id number] Morphine Sulfate (Morphine Sulf/Nss) 250 mg in 250 mls @ 5 mls/hr IV .Q24H PRN; Protocol PRN Reason: Pain Stop: 05/12/19 10:17 Last Titration: 04/29/19 06:57 Dose: 5 mg/hr, 5 mls/hr Documented by: [id number] Cosigned by: [id number] Titration: 04/28/19 23:10 Dose: 5 mg/hr, 5 mls/hr Documented by: [id number] Cosigned by: [id number] Titration: 04/28/19 23:09 Dose: 5 mg/hr, 5 mls/hr Documented by: [id number] Titration: 04/28/19 17:01 Dose: 5 mg/hr, 5 mls/hr Documented by: [id number] Titration: 04/28/19 15:21 Dose: 4 mg/hr, 4 mls/hr Documented by: [id number] Cosigned by: [id number] Titration: 04/28/19 14:49 Dose: 4 mg/hr, 4 mls/hr Documented by: [id number] Cosigned by: [id number] Titration: 04/28/19 14:42 Dose: 4 mg/hr, 4 mls/hr Documented by: [id number] Titration: 04/28/19 13:40 Dose: 3 mg/hr, 3 mls/hr Documented by: [id number] Admin: 04/28/19 10:37 Dose: 2 mg/hr, 2 mls/hr Documented by: [id number] Cosigned by: [id number] Miscellaneous (Check Scopolamine Patch Placement) 1 ea N/A QS LULÚ Stop: 05/28/19 15:59 Last Admin: 04/29/19 00:29 Dose: 1 ea Documented by: [id number] Admin: 04/28/19 16:09 Dose: 1 ea Documented by: [id number] Scopolamine (Transderm-Scop) 1.5 mg TD Q72H LULÚ Stop: 05/28/19 10:29 Last Admin: 04/28/19 12:01 Dose: 1.5 mg Documented by: [id number] Discontinued Medications Sodium Chloride (Nss 1000ml) 1,000 mls @ 50 mls/hr IV .Q20H LULÚ Stop: 05/28/19 03:59 Last Infusion: 04/28/19 15:23 Dose: 0 mls/hr Documented by: [id number] Admin: 04/28/19 04:15 Dose: 50 mls/hr Documented by: [id number] Lorazepam (Ativan) 0.5 mg in 1 mls @ 1 mls/min IV NOW STA Stop: 04/28/19 05:13 Last Admin: 04/28/19 05:27 Dose: 1 mls/min Documented by: [id number] Labetalol HCl (Normodyne) 10 mg IV NOW STA Stop: 04/28/19 03:54 Last Admin: 04/28/19 04:14 Dose: 10 mg Documented by: [id number] Cosigned by: [id number] Labetalol HCl (Normodyne) 10 mg IV NOW STA Stop: 04/28/19 04:23 Last Admin: 04/28/19 04:26 Dose: 10 mg Documented by: [id number] Cosigned by: [id number] Labetalol HCl (Normodyne) 10 mg IV NOW STA Stop: 04/28/19 05:32 Last Admin: 04/28/19 05:34 Dose: 10 mg Documented by: [id number] Cosigned by: [id number] Morphine Sulfate (Morphine Sulfate) 4 mg IV NOW STA Stop: 04/28/19 07:06 Last Admin: 04/28/19 07:09 Dose: 4 mg Documented by: [id number] Morphine Sulfate (Morphine Sulfate) 2 mg IV NOW STA Stop: 04/28/19 08:20 Last Admin: 04/28/19 08:51 Dose: 2 mg Documented by: [id number] Ondansetron HCl (Zofran) 4 mg IV NOW STA Stop: 04/28/19 05:13 Last Admin: 04/28/19 05:27 Dose: 4 mg Documented by: [id number] Critical Care Time Critical Care Time: Yes Total Critical Care Time: 60 I have personally spent 60 minutes of critical care time in the direct management of this patient. This includes bedside care, interpretation of diagnostic studies, and testing, discussion with consultants, patient, and family members, and other required patient management activities. This 60 minutes is in excess of all separately billable procedures. Medical Decision Making Differential Diagnosis Differential diagnoses includes but is not limited to toxic, metabolic, infectious, traumatic, cardiac, neurologic, hematologic, psychiatric and inflammatory etiologies. Medical Records Attestation: I reviewed the patient's medical records. Home Medications Current Medication List: was personally reviewed by me Laboratory Data Attestation: I reviewed the patient's lab results. Result diagrams: 04/28/19 04:02 04/28/19 04:02 Lab Results 04/28/19 04/28/19 04/28/19 Range/Units 04:02 04:02 04:02 WBC 12.97 H (4.8-10.8) K/uL RBC 4.85 (4.7-6.1) M/uL Hgb 14.6 (14.0-18.0) g/dL Hct 43.1 (42-52) % MCV 88.9 (80-100) fL MCH 30.1 (25-34) pg MCHC 33.9 (32-36) g/dL RDW Std Deviation 42.1 (36.4-46.3) fL RDW Coeff of Khang 13.0 (11.5-14.5) % Plt Count 213 (130-400) K/uL MPV 9.9 (7.4-10.4) fL Immature Gran % (Auto) 0.3 % Neut % (Auto) 86.3 % Lymph % (Auto) 6.6 % [place] % (Auto) 6.1 % Eos % (Auto) 0.5 % Baso % (Auto) 0.2 % Immature Gran # (Auto) 0.04 H (0.00-0.02) K/uL Neut # (Auto) 11.19 H (1.4-6.5) K/uL Lymph # (Auto) 0.86 L (1.2-3.4) K/uL [place] # (Auto) 0.79 H (0.11-0.59) K/uL Eos # (Auto) 0.07 (0-0.5) K/uL Baso # (Auto) 0.02 (0-0.2) K/uL Ovalocytes 1+ PT 10.2 (9.0-12.0) Seconds INR 1.0 (0.9-1.1) APTT 21.9 (21.0-31.0) Seconds PTT Ratio 0.8 VBG pH (7.36-7.41) VBG pCO2 (38-50) mmHg VBG pO2 mmHg VBG HCO3 mmol/L VBG O2 Saturation % VBG Base Excess mEq/L Barometric Pressure mm/Hg Sodium 140 (136-145) mmol/L Potassium 3.9 (3.5-5.1) mmol/L Chloride 109 H (98-107) mmol/L Carbon Dioxide 25 (21-32) mmol/L Anion Gap 6.0 (3-11) BUN 24 H (7-18) mg/dl Creatinine 1.17 (0.6-1.4) mg/dl Est Cr Clr Drug Dosing Not Reportable Est GFR ( Amer) 65.5 Est GFR (Non-Af Amer) 56.5 BUN/Creatinine Ratio 20.5 H (10-20) Glucose 139 H (70-99) mg/dl Calcium 8.3 L (8.5-10.1) mg/dl Magnesium 2.1 (1.8-2.4) mg/dl Total Bilirubin 0.5 (0.2-1) mg/dl AST 19 (15-37) U/L ALT 23 (12-78) U/L Alkaline Phosphatase 56 (45-117) U/L Total Creatine Kinase 111 (39-308) U/L Troponin I 0.029 (0-0.045) ng/ml Total Protein 7.3 (6.4-8.2) gm/dl Albumin 3.8 (3.4-5.0) gm/dl Globulin 3.5 (2.5-4.0) gm/dl Albumin/Globulin Ratio 1.1 (0.9-2) Urine Color Urine Appearance (Clear) Urine pH (4.5-7.5) Ur Specific [place] (1.000-1.030) Urine Protein (Negative) Urine Glucose (UA) (Negative) Urine Ketones (Negative) Urine Blood (Negative) Urine Nitrite (Negative) Urine Bilirubin (Negative) Urine Urobilinogen (Negative) Ur Leukocyte Esterase (Negative) Urine WBC (Auto) (0-5) /hpf Urine RBC (Auto) (0-4) /hpf U Hyaline Cast (Auto) (0-5) /lpf U Epithel Cells (Auto) (0-5) /lpf Urine Bacteria (Auto) (Negative) Urine Opiates Screen (Neg) Ur Methadone, Qual (Neg) Urine Barbiturates (Neg) Ur Phencyclidine (PCP) (Neg) U Amphetamin/Meth Scrn (Neg) MDMA (Ecstasy) Screen (Neg) U Benzodiazepines Scrn (Neg) Ur Cocaine Metabolite (Neg) U Marijuana (THC) Screen (Neg) Blood Type Antibody Screen 04/28/19 04/28/19 04/28/19 Range/Units 04:02 04:02 04:05 WBC (4.8-10.8) K/uL RBC (4.7-6.1) M/uL Hgb (14.0-18.0) g/dL Hct (42-52) % MCV (80-100) fL MCH (25-34) pg MCHC (32-36) g/dL RDW Std Deviation (36.4-46.3) fL RDW Coeff of Khang (11.5-14.5) % Plt Count (130-400) K/uL MPV (7.4-10.4) fL Immature Gran % (Auto) % Neut % (Auto) % Lymph % (Auto) % [place] % (Auto) % Eos % (Auto) % Baso % (Auto) % Immature Gran # (Auto) (0.00-0.02) K/uL Neut # (Auto) (1.4-6.5) K/uL Lymph # (Auto) (1.2-3.4) K/uL [place] # (Auto) (0.11-0.59) K/uL Eos # (Auto) (0-0.5) K/uL Baso # (Auto) (0-0.2) K/uL Ovalocytes PT (9.0-12.0) Seconds INR (0.9-1.1) APTT (21.0-31.0) Seconds PTT Ratio VBG pH 7.30 L (7.36-7.41) VBG pCO2 52 H (38-50) mmHg VBG pO2 41 mmHg VBG HCO3 25 mmol/L VBG O2 Saturation 68.6 % VBG Base Excess -2.2 mEq/L Barometric Pressure 737.3 mm/Hg Sodium (136-145) mmol/L Potassium (3.5-5.1) mmol/L Chloride (98-107) mmol/L Carbon Dioxide (21-32) mmol/L Anion Gap (3-11) BUN (7-18) mg/dl Creatinine (0.6-1.4) mg/dl Est Cr Clr Drug Dosing Est GFR ( Amer) Est GFR (Non-Af Amer) BUN/Creatinine Ratio (10-20) Glucose (70-99) mg/dl Calcium (8.5-10.1) mg/dl Magnesium (1.8-2.4) mg/dl Total Bilirubin (0.2-1) mg/dl AST (15-37) U/L ALT (12-78) U/L Alkaline Phosphatase (45-117) U/L Total Creatine Kinase (39-308) U/L Troponin I (0-0.045) ng/ml Total Protein (6.4-8.2) gm/dl Albumin (3.4-5.0) gm/dl Globulin (2.5-4.0) gm/dl Albumin/Globulin Ratio (0.9-2) Urine Color Urine Appearance (Clear) Urine pH (4.5-7.5) Ur Specific [place] (1.000-1.030) Urine Protein (Negative) Urine Glucose (UA) (Negative) Urine Ketones (Negative) Urine Blood (Negative) Urine Nitrite (Negative) Urine Bilirubin (Negative) Urine Urobilinogen (Negative) Ur Leukocyte Esterase (Negative) Urine WBC (Auto) (0-5) /hpf Urine RBC (Auto) (0-4) /hpf U Hyaline Cast (Auto) (0-5) /lpf U Epithel Cells (Auto) (0-5) /lpf Urine Bacteria (Auto) (Negative) Urine Opiates Screen Neg (Neg) Ur Methadone, Qual Neg (Neg) Urine Barbiturates Neg (Neg) Ur Phencyclidine (PCP) Neg (Neg) U Amphetamin/Meth Scrn Neg (Neg) MDMA (Ecstasy) Screen Neg (Neg) U Benzodiazepines Scrn Neg (Neg) Ur Cocaine Metabolite Neg (Neg) U Marijuana (THC) Screen Neg (Neg) Blood Type AB Positive Antibody Screen NEGATIVE 04/28/19 Range/Units 04:05 WBC (4.8-10.8) K/uL RBC (4.7-6.1) M/uL Hgb (14.0-18.0) g/dL Hct (42-52) % MCV (80-100) fL MCH (25-34) pg MCHC (32-36) g/dL RDW Std Deviation (36.4-46.3) fL RDW Coeff of Khang (11.5-14.5) % Plt Count (130-400) K/uL MPV (7.4-10.4) fL Immature Gran % (Auto) % Neut % (Auto) % Lymph % (Auto) % [place] % (Auto) % Eos % (Auto) % Baso % (Auto) % Immature Gran # (Auto) (0.00-0.02) K/uL Neut # (Auto) (1.4-6.5) K/uL Lymph # (Auto) (1.2-3.4) K/uL [place] # (Auto) (0.11-0.59) K/uL Eos # (Auto) (0-0.5) K/uL Baso # (Auto) (0-0.2) K/uL Ovalocytes PT (9.0-12.0) Seconds INR (0.9-1.1) APTT (21.0-31.0) Seconds PTT Ratio VBG pH (7.36-7.41) VBG pCO2 (38-50) mmHg VBG pO2 mmHg VBG HCO3 mmol/L VBG O2 Saturation % VBG Base Excess mEq/L Barometric Pressure mm/Hg Sodium (136-145) mmol/L Potassium (3.5-5.1) mmol/L Chloride (98-107) mmol/L Carbon Dioxide (21-32) mmol/L Anion Gap (3-11) BUN (7-18) mg/dl Creatinine (0.6-1.4) mg/dl Est Cr Clr Drug Dosing Est GFR ( Amer) Est GFR (Non-Af Amer) BUN/Creatinine Ratio (10-20) Glucose (70-99) mg/dl Calcium (8.5-10.1) mg/dl Magnesium (1.8-2.4) mg/dl Total Bilirubin (0.2-1) mg/dl AST (15-37) U/L ALT (12-78) U/L Alkaline Phosphatase (45-117) U/L Total Creatine Kinase (39-308) U/L Troponin I (0-0.045) ng/ml Total Protein (6.4-8.2) gm/dl Albumin (3.4-5.0) gm/dl Globulin (2.5-4.0) gm/dl Albumin/Globulin Ratio (0.9-2) Urine Color Yellow Urine Appearance Clear (Clear) Urine pH 7.0 (4.5-7.5) Ur Specific [place] 1.012 (1.000-1.030) Urine Protein 2+ H (Negative) Urine Glucose (UA) 1+ H (Negative) Urine Ketones Negative (Negative) Urine Blood 1+ H (Negative) Urine Nitrite Negative (Negative) Urine Bilirubin Negative (Negative) Urine Urobilinogen Negative (Negative) Ur Leukocyte Esterase Negative (Negative) Urine WBC (Auto) 1-5 (0-5) /hpf Urine RBC (Auto) 0-4 (0-4) /hpf U Hyaline Cast (Auto) 1-5 (0-5) /lpf U Epithel Cells (Auto) 5-10 H (0-5) /lpf Urine Bacteria (Auto) Negative (Negative) Urine Opiates Screen (Neg) Ur Methadone, Qual (Neg) Urine Barbiturates (Neg) Ur Phencyclidine (PCP) (Neg) U Amphetamin/Meth Scrn (Neg) MDMA (Ecstasy) Screen (Neg) U Benzodiazepines Scrn (Neg) Ur Cocaine Metabolite (Neg) U Marijuana (THC) Screen (Neg) Blood Type Antibody Screen Imaging Data My Impression: 1 VIEW CHEST X-RAY: No cardiomegaly. No pneumothorax. Small right pleural effusion. Increased pulmonary nodules bilaterally. Increased interstitial markings bilaterally. BBs noted in right hemithorax. Radiologist's Impression: Radiology results as stated below per my review and the radiologist's interpretation: CT HEAD: Comparison is made to CT had on 12/27/2017. Examination is limited by artifact. Large intraparenchymal hemorrhage centered in the left thalamus and squires ra diate, measuring approximately 5.4 x 6.8 cm. Surrounding edema. Extension of blood into the left greater than right lateral ventricles and third ventricle and fourth ventricle. Enlargement of the ventricles is suggestive of hydrocephalus. Prominent mass effect of the left lateral ventricle with approximately 9mm of rightward midline shift. Bilateral lens implants. Polyp versus mucous retention cyst in the right maxillary sinus. Atherosclerotic calcifications of the intracranial vasculature. Metallic densities scattered in the right soft tissues. Radiologist: Felipe Walton MD. CT C SPINE: Examination is limited by motion artifact. No definite acute traumatic abnormality identified. Osteopenia. Degenerative changes of the spine. Small ossification in the nuchal ligament is likely related to remote trauma. Atherosclerotic changes of the vasculature. Small metallic densities in the right and posterior soft tissues. Radiologist: Felipe Walton MD. ECG Data Attestation: I personally reviewed and interpreted this ECG as follows: Indication: + altered mental status Rate (beats per minute): 86 Rhythm: + sinus rhythm ECG Intervals/blocks: + First degree AV block ECG [place]: + Normal ECG ST segments: no ST depression and no ST elevation Additional Comments: Normal QRS/QTC, artifact and aberrancy noted on tracing. Blood Pressure Blood Pressure Findings: Elevated blood pressure Blood Pressure Disposition: further management by hospitalist Head Trauma GCS Score: 6 MDM Narrative Patient brought in here due to altered mental status and significantly elevated blood pressure with immediate concern for possible stroke. Patient was protecting his airway and due to advanced age and unknown advanced directive with family in route, decision made to send the patient down for CT imaging and to temporarily hold off on intubation due to altered mental status and need for airway protection. Upon arrival with family and results of CT head, I had additional bedside discussion with them. They wanted to wait for son but wanted to hold off intubation and aggressive interventions as they did not feel patient would want this. Did discuss with them the patient was unlikely to have a meaningful recovery back to neurologic baseline after such a significant insult. Upon arrival of the son we again discussed at bedside patient's findings and current prognosis, and I did show them the CT imaging. They would like to keep patient comfortable at this time, will make patient DNR/DNI, do not want any aggressive interventions. Patient had been given several doses of IV blood pressure medication initially, and was then given IV morphine. Case discussed with hospitalist for additional inpatient and likely palliative management. Family remained at bedside with patient. Impression & Plan AMS (altered mental status), Acute intracerebral hemorrhage, Increased intracranial pressure, Vomiting, Fall Discharge Plan Visit Data *Final* Discharge Date/Time: 04/28/19 08:59 Chief Complaint: Altered Mental Status Stated Complaint: ALTERED MENTAL STATUS ED Provider: Ashlee Sharma Discharge Problem: AMS (altered mental status), Acute intracerebral hemorrhage, Increased intracranial pressure, Vomiting, Fall Patient Disposition: Admitted As Inpatient Discharge Instructions Interventions: ED Discharge Assessment Last Done: 04/28/19 08:59 Discharge Problem: AMS (altered mental status) Qualifiers: Altered mental status type: unspecified Qualified Code(s): R41.82 - Altered mental status, unspecified Vomiting Qualifiers: Vomiting type: unspecified Vomiting Intractability: non-intractable Nausea presence: unspecified Qualified Code(s): R11.10 - Vomiting, unspecified Fall Qualifiers: Encounter type: initial encounter Qualified Code(s): W19.XXXA - Unspecified fall, initial encounter The scribe's documentation has been prepared under my direction and personally reviewed by me in its entirety. I confirm that the note above accurately reflects all work, treatment, procedures, and medical decision making performed by me.
--- NOTE | 2019-04-28 06:34 | XRay Report ---
XR chest 1V portable CLINICAL HISTORY: weakness COMPARISON STUDY: Chest CT February 12, 2016. Chest radiograph January 07, 2018. FINDINGS: Note is made of moderate cardiomegaly. There is no evidence for pulmonary edema. There are numerous calcified pleural plaques. Metallic BBs project of the right hemithorax. Bandlike right supr ahilar density is noted. There is no lobar consolidation. Blunting of both costophrenic angles is lik michelle chronic. IMPRESSION: 1. Bandlike right suprahilar density. This favors atelectasis however radiographic follow-up is recom mended. 2. Moderate cardiomegaly without evidence for pulmonary edema. ACT 112: Negative or not required by law. Electronically signed by: Kamran Ramos M.D. 04/28/2019 6:33 AM
--- NOTE | 2019-04-28 06:39 | CT Scan Report ---
CT OF THE CERVICAL SPINE WITHOUT CONTRAST CLINICAL HISTORY: fall COMPARISON STUDY: CTA of the neck December 27, 2017. TECHNIQUE: Helical axial images of the cervical spine were obtained without IV contrast. Sagittal a nd coronal reconstructions were viewed. Automated exposure control was utilized for the study. A do se lowering technique was utilized adhering to the principles of ALARA. FINDINGS: Please note that the head CT will be reported separately. This better demonstrates extensiv e intraventricular hemorrhage, greater within the left lateral ventricle. This exam is moderately com promised by motion artifact. No acute fractures identified. Alignment is anatomic. Craniocervical guillermo ction is intact. There is moderate multilevel disc space narrowing and osteophytosis with facet arthr osis. There is no prevertebral edema. IMPRESSION: 1. Exam moderately compromised by motion artifact. No acute fractures identified. 2. Extensive intraventricular hemorrhage, better depicted on the head CT. Please see that report for further description. ACT 112: Negative or not required by law. Electronically signed by: Kamran Ramos M.D. 04/28/2019 6:38 AM
[2019-04-28] MEDS ORDERED: MoRPHine SULFATE 4 MG/ML 1 ML CARP\\VIAL IV STA (07:05)
--- NOTE | 2019-04-28 07:13 | CT Scan Report ---
HEAD CT NONCONTRAST CT DOSE: 821.00 mGycm HISTORY: Stroke evaluation TECHNIQUE: Multiaxial CT images of the head were performed without the use of intravenous contrast. A utomated exposure control was utilized for this study. A dose lowering technique was utilized adheri ng to the principles of ALARA. Comparison: Head CT 8 12/27/2017. Findings: The paranasal sinuses and mastoid air cells are clear. A few scattered metallic BBs seen wi thin the scalp. Large intraparenchymal hematoma involving the left external capsule/basal ganglia and demonstrating intraventricular extension. There is associated mild hydrocephalus. The hematoma measu res 6.9 cm. This results in 12 mm of right midline shift. Mild surrounding edema. Impression: Large intraparenchymal hematoma involving the left external capsule/basal ganglia with intraventricul ar extension and hydrocephalus. There is 12 mm of right midline shift. ACT 112: Negative or not required by law. Electronically signed by: Adebayo Amos M.D. 04/28/2019 7:11 AM
[2019-04-28] MEDS ORDERED: MoRPHine SULFATE 2 MG/ML CARP IV STA (08:19)
--- NOTE | 2019-04-28 08:26 | History & Physical Report ---
Date of Service April 28, 2019 Assessment & Plan (1) Admission for palliative care: I believe the patient likely had a very large, catastrophic left-sided hemorrhagic stroke in the setting of chronic anticoagulation. There are no signs that he fell and hit his head leading to the ICH. Regardless of specific etiology this event is life-altering and catastrophic. Pt's and children are in agreement that the patient would NOT want aggressive intervention in a situation like this. Prior to my arrival the pt's family had discussed the care plan with the ER attending and the family had opted for a comfort care pathway. I, too, confirmed comfort care measures with the family and his . He already has evidence of increased intracranial pressure on CT head as well as by way of asymmetric pupils. He also has acute hypercarbic respiratory failure - perhaps from an aspiration event due to recent vomiting, and/or due to the massive intracranial bleed itself. 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 (2) Acute intracerebral hemorrhage: left-sided, massive as above (3) AMS (altered mental status): 2nd to ICH (4) Acute hypercapnic respiratory failure: as above (5) Increased intracranial pressure: 2nd to ICH (6) Vomiting: (7) Chronic anticoagulation: xarelto for prior DVT/PE (8) Benign essential tremor: vs parkinsonism (9) Parkinsons: vs parkinsonism (10) History of pulmonary embolism: (11) Hypercoagulable state, primary: (12) HLD (hyperlipidemia): (13) TIA (transient ischemic attack): history of such Support given to family. Family counseled on what to expect, how long he may have, anticipation of abnormal breathing/apnea, etc History of Present Illness Chief Complaint: altered mental status Primary Care Provider: Guillermo Jain MD 83yo male with h/o DVT/PE on xarelto, HTN, ?parkinson's disease vs parkinsonism, tremor, and prior TIA who was found down at his home in [place] early this am by his . He was last seen well sometime late in the evening prior to midnight. found him down on the floor in the bathroom. Over the last few days he had only been complaining of a cold feeling in his legs. No recent headaches or new neurological symptoms. Family reports he has had worsening tremors and there had been some discussion of whether he could have parkinson's disease vs parkinsonism vs just severe tremors. One of his children at bedside stated he had been declining over the last few months/year with "good days and bad days." stated there was no evidence of trauma or hitting his head when he was found this am. He apparently vomited prior to arrival in the ER. Upon ER presentation via EMS a CT head showed massive left-sided intra-cranial hemorrhage with hydrocephalus and severe midline shift. Discussions were held with the family, and a decision was made to pursue comfort care pathway. Allergies Allergy/AdvReac Type Severity Reaction Status Date / Time No Known Allergies Allergy Unverified 04/28/19 04:02 Home Medications Home Medications Medication Instructions Recorded Confirmed Type lisinopril 40 mg tablet 40 mg PO DAILY #90 tab 10/14/18 04/28/19 Rx bisoprolol 5 1 tab PO DAILY #90 tab 10/26/18 04/28/19 Rx mg-hydrochlorothiazide 6.25 mg tablet simvastatin 40 mg tablet 40 mg PO DAILY #90 tab 10/28/18 04/28/19 Rx rivaroxaban 20 mg tablet 20 mg PO DAILY #90 tab 01/23/19 04/28/19 Rx Past Med/Surg History Medical History Benign essential tremor Bleeding on Coumadin (Resolved) Diastasis recti Generalized osteoarthritis of multiple sites Hearing loss History of pulmonary embolism Hypercoagulable state, primary Hyperhomocysteinemia Hypertension (Acute) Laceration Localized primary osteoarthritis of lower leg Lyme disease, acute (Resolved) Multiple pulmonary nodules Nasal congestion Parkinsons Pleural plaque with presence of asbestos Postoperative bleeding from incision Renal lesion Sensorineural hearing loss (SNHL) of both ears Stenosis of both vertebral arteries Surgical History S/P unilateral inguinal hernia repair Family History (Updated 04/28/19 @ 08:45 by Alfred Hagan) Mother Stroke syndrome Social History (Updated 04/28/19 @ 08:46 by Alfred Hagan) Preferred Language: Yi Communication Ability: Effective 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 Runner Required: No Beliefs That Will Affect Care: None marital status details: 2x's; 5 children (some biological, some step- children) Current Living Situation: Spouse 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: 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; 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 Feels Safe at Home: Yes Smoking Status: Never smoker Hx Alcohol Use: No Hx Substance Use: No Review of Systems Review of Systems: Unobtainable due to reduced consciousness Physical Exam Constitutional: + acute distress (tachypnea, see-saw breathing, coughing occasionally) and + altered mental status Eyes: asymmetric pupils; right pupil 1-2mm; left pupil 3mm ENMT: Mouth: + dry oral mucous membranes Neck: trachea midline, no thyromegaly Respiratory: + respiratory distress, + labored breathing, + retractions, + uses accessory muscles, + cough and + tachypneic Auscultation: + crackles Cardiovascular: Rate/Rhythm: regular rate and regular rhythm Heart Sounds: normal S1 and normal S2; no murmur Vessels: posterior tibial pulses present and dorsalis pedis pulses present; no JVD Extremities: no edema Gastrointestinal (Abdomen): normal bowel sounds, soft, nontender, no hepatosplenomegaly Musculoskeletal: no signs of trauma; head - no trauma, ecchymoses, etc Skin: no rashes, warm and dry Trauma: no evidence of skin trauma, no hematoma, no periorbital ecchymosis, no raccoon eyes and no obregon's sign Neurologic: no spontaneous movements of any limb during my exam; asymmetric pupils as above Psychiatric: Orientation: + not alert and + not oriented x 3 Lymphatic: no cervical lymphadenopathy Results & Data Vital Signs (Past 12 Hours) Vital Signs Temp Pulse Pulse Resp BP BP Pulse Ox 04/28/19 08:00 85 22 140/74 96 04/28/19 07:31 85 23 155/81 H 97 04/28/19 07:30 84 24 96 04/28/19 07:15 84 28 H 98 04/28/19 07:01 70 28 H 221/97 H 99 04/28/19 07:00 89 28 H 221/97 H 99 04/28/19 06:45 82 28 H 99 04/28/19 06:32 81 24 99 04/28/19 06:31 85 22 178/86 H 98 04/28/19 06:30 82 24 98 04/28/19 06:15 81 23 99 04/28/19 06:00 82 25 H 193/93 H 99 04/28/19 05:45 75 24 98 04/28/19 05:39 83 26 H 99 04/28/19 05:38 85 27 H 202/96 H 99 04/28/19 05:31 88 25 H 212/99 H 99 04/28/19 05:30 86 28 H 100 04/28/19 05:22 86 28 H 218/110 H 100 04/28/19 05:15 78 25 H 100 04/28/19 05:01 82 20 198/98 H 100 04/28/19 05:00 82 25 H 198/98 H 100 04/28/19 04:45 85 26 H 194/105 H 04/28/19 04:30 83 24 194/107 H 04/28/19 04:25 67 24 192/142 H 04/28/19 04:24 82 24 192/142 H 04/28/19 04:17 92 H 21 260/113 H 04/28/19 04:16 93 H 25 H 04/28/19 03:39 36.1 C L 83 22 227/118 H 99 Laboratory Results Laboratory Results - last 24 hr 04/28/19 04/28/19 04/28/19 04:02 04:02 04:02 WBC 12.97 H RBC 4.85 Hgb 14.6 Hct 43.1 MCV 88.9 MCH 30.1 MCHC 33.9 RDW Std Deviation 42.1 RDW Coeff of [place] 13.0 Plt Count 213 MPV 9.9 Immature Gran % (Auto) 0.3 Neut % (Auto) 86.3 Lymph % (Auto) 6.6 [place] % (Auto) 6.1 Eos % (Auto) 0.5 Baso % (Auto) 0.2 Immature Gran # (Auto) 0.04 H Neut # (Auto) 11.19 H Lymph # (Auto) 0.86 L [place] # (Auto) 0.79 H Eos # (Auto) 0.07 Baso # (Auto) 0.02 Ovalocytes 1+ PT 10.2 INR 1.0 APTT 21.9 PTT Ratio 0.8 VBG pH VBG pCO2 VBG pO2 VBG HCO3 VBG O2 Saturation VBG Base Excess Barometric Pressure Sodium 140 Potassium 3.9 Chloride 109 H Carbon Dioxide 25 Anion Gap 6.0 BUN 24 H Creatinine 1.17 Est Cr Clr Drug Dosing Not Reportable Est GFR ( Amer) 65.5 Est GFR (Non-Af Amer) 56.5 BUN/Creatinine Ratio 20.5 H Glucose 139 H Calcium 8.3 L Magnesium 2.1 Total Bilirubin 0.5 AST 19 ALT 23 Alkaline Phosphatase 56 Total Creatine Kinase 111 Troponin I 0.029 Total Protein 7.3 Albumin 3.8 Globulin 3.5 Albumin/Globulin Ratio 1.1 Urine Color Urine Appearance Urine pH Ur Specific [place] Urine Protein Urine Glucose (UA) Urine Ketones Urine Blood Urine Nitrite Urine Bilirubin Urine Urobilinogen Ur Leukocyte Esterase Urine WBC (Auto) Urine RBC (Auto) U Hyaline Cast (Auto) U Epithel Cells (Auto) Urine Bacteria (Auto) Urine Opiates Screen Ur Methadone, Qual Urine Barbiturates Ur Phencyclidine (PCP) U Amphetamin/Meth Scrn MDMA (Ecstasy) Screen U Benzodiazepines Scrn Ur Cocaine Metabolite U Marijuana (THC) Screen Blood Type Antibody Screen 04/28/19 04/28/19 04/28/19 04:02 04:02 04:05 WBC RBC Hgb Hct MCV MCH MCHC RDW Std Deviation RDW Coeff of [place]hang Plt Count MPV Immature Gran % (Auto) Neut % (Auto) Lymph % (Auto) [place] % (Auto) Eos % (Auto) Baso % (Auto) Immature Gran # (Auto) Neut # (Auto) Lymph # (Auto) [place] # (Auto) Eos # (Auto) Baso # (Auto) Ovalocytes PT INR APTT PTT Ratio VBG pH 7.30 L VBG pCO2 52 H VBG pO2 41 VBG HCO3 25 VBG O2 Saturation 68.6 VBG Base Excess -2.2 Barometric Pressure 737.3 Sodium Potassium Chloride Carbon Dioxide Anion Gap BUN Creatinine Est Cr Clr Drug Dosing Est GFR ( Amer) Est GFR (Non-Af Amer) BUN/Creatinine Ratio Glucose Calcium Magnesium Total Bilirubin AST ALT Alkaline Phosphatase Total Creatine Kinase Troponin I Total Protein Albumin Globulin Albumin/Globulin Ratio Urine Color Urine Appearance Urine pH Ur Specific [place] Urine Protein Urine Glucose (UA) Urine Ketones Urine Blood Urine Nitrite Urine Bilirubin Urine Urobilinogen Ur Leukocyte Esterase Urine WBC (Auto) Urine RBC (Auto) U Hyaline Cast (Auto) U Epithel Cells (Auto) Urine Bacteria (Auto) Urine Opiates Screen Neg Ur Methadone, Qual Neg Urine Barbiturates Neg Ur Phencyclidine (PCP) Neg U Amphetamin/Meth Scrn Neg MDMA (Ecstasy) Screen Neg U Benzodiazepines Scrn Neg Ur Cocaine Metabolite Neg U Marijuana (THC) Screen Neg Blood Type AB Positive Antibody Screen NEGATIVE 04/28/19 04:05 WBC RBC Hgb Hct MCV MCH MCHC RDW Std Deviation RDW Coeff of [place]hang Plt Count MPV Immature Gran % (Auto) Neut % (Auto) Lymph % (Auto) [place] % (Auto) Eos % (Auto) Baso % (Auto) Immature Gran # (Auto) Neut # (Auto) Lymph # (Auto) [place] # (Auto) Eos # (Auto) Baso # (Auto) Ovalocytes PT INR APTT PTT Ratio VBG pH VBG pCO2 VBG pO2 VBG HCO3 VBG O2 Saturation VBG Base Excess Barometric Pressure Sodium Potassium Chloride Carbon Dioxide Anion Gap BUN Creatinine Est Cr Clr Drug Dosing Est GFR ( Amer) Est GFR (Non-Af Amer) BUN/Creatinine Ratio Glucose Calcium Magnesium Total Bilirubin AST ALT Alkaline Phosphatase Total Creatine Kinase Troponin I Total Protein Albumin Globulin Albumin/Globulin Ratio Urine Color Yellow Urine Appearance Clear Urine pH 7.0 Ur Specific [place] 1.012 Urine Protein 2+ H Urine Glucose (UA) 1+ H Urine Ketones Negative Urine Blood 1+ H Urine Nitrite Negative Urine Bilirubin Negative Urine Urobilinogen Negative Ur Leukocyte Esterase Negative Urine WBC (Auto) 1-5 Urine RBC (Auto) 0-4 U Hyaline Cast (Auto) 1-5 U Epithel Cells (Auto) 5-10 H Urine Bacteria (Auto) Negative Urine Opiates Screen Ur Methadone, Qual Urine Barbiturates Ur Phencyclidine (PCP) U Amphetamin/Meth Scrn MDMA (Ecstasy) Screen U Benzodiazepines Scrn Ur Cocaine Metabolite U Marijuana (THC) Screen Blood Type Antibody Screen Diagnostic Findings CT head - large ICH on left in region of basal ganglia with hydrocephalus, midline shift, etc cxr - no infiltrates Code Status & VTE Plan Code Status DNR/DNI VTE Prophylaxis Plan VTE Prophylaxis will be ordered: No PG Care Time/CCT Total # of Minutes Spent Total Time Spent with Patient: Total time spent is greater than 50% in coordination of care (as documented) at patient's floor/unit and/or counseling patient: Coding Level of Care Code 05787 Initial Inpt Care Lvl 2 Diagnoses Admission for palliative care Z51.5 Acute intracerebral hemorrhage I61.9 AMS (altered mental status) R41.82 Altered mental status type: unspecified Acute hypercapnic respiratory failure J96.02 Increased intracranial pressure G93.2 Vomiting R11.10 Nausea presence: unspecified Vomiting Intractability: non-intractable Vomiting type: unspecified Chronic anticoagulation Z79.01 Benign essential tremor G25.0 Parkinsons G20 History of pulmonary embolism Z86.711 Hypercoagulable state, primary D68.59 HLD (hyperlipidemia) E78.00; E78.0 Hyperlipidemia type: pure hypercholesterolemia TIA (transient ischemic attack) G45.9 (1) AMS (altered mental status) Altered mental status type: unspecified Qualified Code(s): R41.82 - Altered mental status, unspecified (2) Vomiting Nausea presence: unspecified Vomiting Intractability: non-intractable Vomiting type: unspecified Qualified Code(s): R11.10 - Vomiting, unspecified (3) HLD (hyperlipidemia) Hyperlipidemia type: pure hypercholesterolemia Qualified Code(s): E78.00 - Pure hypercholesterolemia, unspecified; E78.0 - Pure hypercholesterolemia
[2019-04-28] MEDS ORDERED: LORazepam 1 MG/2 ML VIAL IV PRN (10:11)
[2019-04-28] MEDS ORDERED: ATROPINE SULFATE 1% OP SOLN 2 ML BTL OP PRN (10:11)
[2019-04-28] MEDS ORDERED: MoRPHine SULF/NSS 250 MG/250 ML BTL IV SCH (10:15)
[2019-04-28] MEDS ORDERED: LORazepam 0.5 MG TAB PO PRN (10:18)
[2019-04-28] MEDS ORDERED: ONDANSETRON INJ 2 MG/ML 2 ML VIAL IV PRN (10:18)
[2019-04-28] MEDS ORDERED: LORazepam 0.5 MG/1 ML VIAL IV PRN (10:18)
--- NOTE | 2019-04-28 10:18 | Palliative Care Consultation ---
Date of Consultation April 28, 2019 Assessment & Plan (1) Goals of care, counseling/discussion: This is an unfortunate 83yo male who presented to the [facility] ED after being found on the floor unresponsive in his bathroom by his , Pau, at their home in [place]. His declines any significant neurological changes. There was no evidence that he sustained any trauma or hit his head. Additional PMH includes: DVT/PE (On Xarelto), HTN, parkinson's disease vs parkinsonism, resting hand tremor, and prior TIA. Dr. 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 All family members were in agreement that Ricardo would NOT want aggressive treatment. Comfort Measures has been initiated. Palliative Care has been consulted for symptom management and goals of care support. -I met with the patient just when he was transferred to the 4th floor. His , Pau, one son, DIL and granddaughter were at the bedside. -Ricardo and Pau have been for 24 years, their 25th anniversary is on May 23. They have a blended family that gets along very well. -Pau has one son that lives in [place] and is planning to arrive tomorrow. I suggested calling him and holding the phone up to Ricardo's ear for anyone that can't be here that would like to be. -The patient was very labored with his breathing, tachypnic, furrowed brow and with audible oral secretions. -I provided support and sympathy for the abrupt event that Ricardo endured. They felt very informed from earlier conversation with Dr. Hagan. -I discussed starting a Morphine drip to help get his breathing a little less labored, all were in agreement. I ordered a Morphine gtt 250mg/250mL. Start at 2mg/hour and increase by 2mg/30 minutes PRN for pain, labored breathing with a maximum of 10mg/hour. Please titrate for diaphragmatic breathing, tachypnia, and furrowed brow along with any other signs on nursing assessment that would lead you to believe the patient is uncomfortable. Please contact Palliative Care if any questions from an assessment standpoint. -I ordered Ativan in the event he has a seizure and Atropine for oral secretions. -Confirmed that all other vital signs, labs, and treatment will be discontinued at this time. -Their Underwriting Intern has already given the patient his last rights downstairs in the Emergency Room. -Patient likely has hours to a few days of life expectancy. We discussed end of life symptoms to expect, all questions answered. Pt is a DNR/DNI. -Anticipated that patient will in hospital. Not a suitable GIP candidate. -PPS: 10% (2) Acute intracerebral hemorrhage: (3) AMS (altered mental status): Altered mental status type: unspecified Qualified Code(s): R41.82 - Altered mental status, unspecified (4) Chronic anticoagulation: (5) Vomiting: Nausea presence: unspecified Vomiting Intractability: non- intractable Vomiting type: unspecified Qualified Code(s): R11.10 - Vomiting, unspecified (6) Acute hypercapnic respiratory failure: Supervising Physician Co-Signing Physician Notes Chart reviewed , pt seen and examined, multiple family at bedside including , daughter , stepdaughter and grandchildren Pt unresponsive to voice or touch Labored respirations - notified nursing - adjusted morphine drip rate Resp: increased WOB, O2 via oxymask CV: RR ABD: not distended Ext: R foot cool to touch History of Present Illness Reason for Consultation: Goals of care Requesting Physician: Dr. Hagan Attending Physician: Alfred Hagan History of Present Illness This is an unfortunate 83yo male who presented to the [facility] ED after being found on the floor unresponsive in his bathroom by his , Pau, at their home in [place]. His declines any significant neurological changes. There was no evidence that he sustained any trauma or hit his head. Additional PMH includes: DVT/PE (On Xarelto), HTN, parkinson's disease vs parkinsonism, resting hand tremor, and prior TIA. Dr. 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 All family members were in agreement that Ricardo would NOT want aggressive treatment. Comfort Measures has been initiated. Palliative Care has been consulted for symptom management and goals of care support. Please see A/P for further details. Thank you kindly for involving the Palliative Care team with this unfortunate patient and yina family. We will follow until his demise. Allergies Allergy/AdvReac Type Severity Reaction Status Date / Time No Known Allergies Allergy Unverified 04/28/19 04:02 Home Medications Home Medications Medication Instructions Recorded Confirmed Type lisinopril 40 mg tablet 40 mg PO DAILY #90 tab 10/14/18 04/28/19 Rx bisoprolol 5 1 tab PO DAILY #90 tab 10/26/18 04/28/19 Rx mg-hydrochlorothiazide 6.25 mg tablet simvastatin 40 mg tablet 40 mg PO DAILY #90 tab 10/28/18 04/28/19 Rx rivaroxaban 20 mg tablet 20 mg PO DAILY #90 tab 01/23/19 04/28/19 Rx Patient History Medical History (Updated 04/28/19 @ 10:26 by BARTOLO Payton) Benign essential tremor Bleeding on Coumadin (Resolved) Diastasis recti Generalized osteoarthritis of multiple sites Goals of care, counseling/discussion Hearing loss History of pulmonary embolism Hypercoagulable state, primary Hyperhomocysteinemia Hypertension (Acute) Laceration Localized primary osteoarthritis of lower leg Lyme disease, acute (Resolved) Multiple pulmonary nodules Nasal congestion Parkinsons Pleural plaque with presence of asbestos Postoperative bleeding from incision Renal lesion Sensorineural hearing loss (SNHL) of both ears Stenosis of both vertebral arteries Surgical History S/P unilateral inguinal hernia repair Family History Mother Stroke syndrome Social History Preferred Language: Irish Communication Ability: Unable Mathematics Academic Chair Required: No Beliefs That Will Affect Care: None marital status details: 2x's; 5 children (some biological, some step-children) Current Living Situation: Spouse 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: 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; 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 Feels Safe at Home: Yes Smoking Status: Never smoker Hx Alcohol Use: No Hx Substance Use: No Review of Systems Review of Systems: Unobtainable due to reduced consciousness Results & Data Vital Signs (Past 12 Hours) Vital Signs Temp Pulse Pulse Resp BP BP Pulse Ox 04/28/19 09:01 74 23 144/83 H 97 04/28/19 09:00 78 23 97 04/28/19 08:31 84 24 199/92 H 97 04/28/19 08:30 82 30 H 97 04/28/19 08:00 85 22 140/74 96 04/28/19 07:31 85 23 155/81 H 97 04/28/19 07:30 84 24 96 04/28/19 07:15 84 28 H 98 04/28/19 07:01 70 28 H 221/97 H 99 04/28/19 07:00 89 28 H 221/97 H 99 04/28/19 06:45 82 28 H 99 04/28/19 06:32 81 24 99 04/28/19 06:31 85 22 178/86 H 98 04/28/19 06:30 82 24 98 04/28/19 06:15 81 23 99 04/28/19 06:00 82 25 H 193/93 H 99 04/28/19 05:45 75 24 98 04/28/19 05:39 83 26 H 99 04/28/19 05:38 85 27 H 202/96 H 99 04/28/19 05:31 88 25 H 212/99 H 99 04/28/19 05:30 86 28 H 100 04/28/19 05:22 86 28 H 218/110 H 100 04/28/19 05:15 78 25 H 100 04/28/19 05:01 82 20 198/98 H 100 04/28/19 05:00 82 25 H 198/98 H 100 04/28/19 04:45 85 26 H 194/105 H 100 04/28/19 04:30 83 24 194/107 H 100 04/28/19 04:25 67 24 192/142 H 100 04/28/19 04:24 82 24 192/142 H 100 04/28/19 04:17 92 H 21 260/113 H 04/28/19 04:16 93 H 25 H 100 04/28/19 03:39 36.1 C L 83 22 227/118 H 99 PG Care Time/CCT Total # of Minutes Spent Total Time Spent with Patient: Total time spent is greater than 50% in coordination of care (as documented) at patient's floor/unit and/or counseling patient: 70 Prolonged Care Time Prolonged Care Time: Yes Total Prolonged Care Time: 45 Coding Level of Care Code 95391 Inpt Consult Level 3 Diagnoses Goals of care, counseling/discussion Z71.89 Acute intracerebral hemorrhage I61.9 AMS (altered mental status) R41.82 Altered mental status type: unspecified Chronic anticoagulation Z79.01 Vomiting R11.10 Nausea presence: unspecified Vomiting Intractability: non-intractable Vomiting type: unspecified Acute hypercapnic respiratory failure J96.02 Additional Codes Prolonged Care Time - Prolonged Care Time: Yes ([id number]) Time Spent (min) 70 Time Spent Midlevel Total time spent 70 minutes with > 50% of that time spent assessing the patient, discussing symptom management and end of life goals. Attending spent 45 min in addition to the 70 min spent by BARTOLO Payton to a total of 115 min with > 50% of time spent at bedside discussing EOL issues as well as providing support to and family Critical Care Time Prolonged Care Time Prolonged Care Time: Yes Total Prolonged Care Time: 45 115
[2019-04-28] MEDS ORDERED: SCOPOLAMINE 1.5 MG TDSY TD SCH (10:30)
[2019-04-28] MEDS: MoRPHine SULF/NSS 250 MG/250 ML BTL IV PRN (10:37)
[2019-04-28] MEDS: ATROPINE SULFATE 1% OP SOLN 2 ML BTL SL PRN ×2 (12:01→19:26)
--- NOTE | 2019-04-28 13:01 | Electrocardiogram Report ---
Test Reason : Blood Pressure : / mmHG Vent. Rate : 086 BPM Atrial Rate : 086 BPM P-R Int : 254 ms QRS Dur : 084 ms QT Int : 362 ms P-R-T Axes : 053 020 026 degrees QTc Int : 433 ms Sinus rhythm with 1st degree A-V block Otherwise normal ECG When compared with ECG of 07-JAN-2018 18:18, [place] interval has increased Confirmed by Keaton Mcclure ([id number]) on 04/28/2019 1:01:13 PM Referred By: REFERRED SELF Confirmed By:Gray Mcclure
[2019-04-28] MEDS: CHECK SCOPOLAMINE PATCH PLACEMENT SCH (16:09)
[2019-04-29] MEDS: CHECK SCOPOLAMINE PATCH PLACEMENT SCH ×3 (00:29→17:50)
--- NOTE | 2019-04-29 14:39 | Hospitalist Progress Note ---
Date of Service April 29, 2019 Assessment & Plan (1) Admission for palliative care: patient likely had a very large, catastrophic left-sided hemorrhagic stroke in the setting of chronic anticoagulation. There are no signs that he fell and hit his head leading to the ICH. Regardless of specific etiology this event is life-altering and catastrophic. Plan -- * institute comfort care measures/pathway * palliative care consultation for family support * support from [facility] and [facility] * morphine drip; titrate for comfort * scopalamine patch * ativan prn * O2 for respiratory distress * keen catheter (2) Acute intracerebral hemorrhage: left-sided, massive as above (3) AMS (altered mental status): 2nd to ICH (4) Acute hypercapnic respiratory failure: as above (5) Increased intracranial pressure: 2nd to ICH (6) Vomiting: (7) Chronic anticoagulation: discontinued now (8) Benign essential tremor: vs parkinsonism (9) Parkinsons: vs parkinsonism (10) History of pulmonary embolism: (11) Hypercoagulable state, primary: (12) HLD (hyperlipidemia): (13) TIA (transient ischemic attack): history of such Subjective family of 6 sitting in patients room. patient appears sleeping/snoring. no evidence of any uncontrolled discomfort at this time. pt is on comfort care here. family is not interested in home hospice. family was given opportunity to ask questions and make any requests known but they were content. Physical Exam Physical Exam: Abnormal Exam: sleeping/snoring. not responsive Constitutional: No distress. no evidence of uncontrolled pain Cardiovascular: Normal RRR. No murmur heard. Pulmonary/Chest: breathing somewhat labored but deep snoring. Abdominal: Soft. Bowel sounds are normal. no distension. There is no tenderness. Musculoskeletal: no deformity. Neurological: not responsive Coding Level of Care Code 91088 Subseq Hosp Care Lvl 1 Diagnoses Admission for palliative care Z51.5 Acute intracerebral hemorrhage I61.9 AMS (altered mental status) R41.82 Altered mental status type: unspecified Acute hypercapnic respiratory failure J96.02 Increased intracranial pressure G93.2 Vomiting R11.10 Nausea presence: unspecified Vomiting Intractability: non-intractable Vomiting type: unspecified Chronic anticoagulation Z79.01 Benign essential tremor G25.0 Parkinsons G20 History of pulmonary embolism Z86.711 Hypercoagulable state, primary D68.59 HLD (hyperlipidemia) E78.00; E78.0 Hyperlipidemia type: pure hypercholesterolemia TIA (transient ischemic attack) G45.9 (1) HLD (hyperlipidemia) Hyperlipidemia type: pure hypercholesterolemia Qualified Code(s): E78.00 - Pure hypercholesterolemia, unspecified; E78.0 - Pure hypercholesterolemia (2) AMS (altered mental status) Altered mental status type: unspecified Qualified Code(s): R41.82 - Altered mental status, unspecified (3) Vomiting Nausea presence: unspecified Vomiting Intractability: non-intractable Vomiting type: unspecified Qualified Code(s): R11.10 - Vomiting, unspecified
[2019-04-29] MEDS: MoRPHine SULF/NSS 250 MG/250 ML BTL IV PRN (15:06)
--- NOTE | 2019-04-29 20:21 | Death Summary ---
Date of Service April 29, 2019 Pronouncement Note Date and Time of Date of : 04/29/19 Time of : 19:37 PCOD Preliminary cause of : Acute intracerebral hemorrhage Contributing Factors (1) Admission for palliative care: (2) Acute intracerebral hemorrhage: (3) AMS (altered mental status): (4) Acute hypercapnic respiratory failure: (5) Increased intracranial pressure: (6) Vomiting: (7) Chronic anticoagulation: (8) Benign essential tremor: (9) Parkinsons: (10) History of pulmonary embolism: (11) Hypercoagulable state, primary: (12) HLD (hyperlipidemia): (13) TIA (transient ischemic attack): Summary Additional details: Nursing paged me to examine the patient at 7:32pm. PT unresponsive, even to painful stimuli, pupils fixed and nonreactive. Pt has no spontaneous breathing, no heart sounds or breath sounds. No carotid or femoral pulses present. No heart sounds heard. Time of pronounced at 7:37pm on 04/29/2019. Additional Data Confirmation of : no pulse Family: at bedside Attending/PCP notified?: No Attending physician: Faisal Bernardo MD Was code activated?: No Autopsy requested?: No methods examiner notified?: No Organ bank notified?: No Resident Activity Tracking Resident Involvement: Resident Care Provided Care Provided: Adult Hospital Medicine
--- NOTE | 2019-05-01 01:41 | Discharge Summary ---
Date of Service May 01, 2019 Admission HPI Per Admitting Provider 83yo male with h/o DVT/PE on xarelto, HTN, ?parkinson's disease vs parkinsonism, tremor, and prior TIA who was found down at his home in [place] early this am by his . He was last seen well sometime late in the evening prior to midnight. found him down on the floor in the bathroom. Over the last few days he had only been complaining of a cold feeling in his legs. No recent headaches or new neurological symptoms. Family reports he has had worsening tremors and there had been some discussion of whether he could have parkinson's disease vs parkinsonism vs just severe tremors. One of his children at bedside stated he had been declining over the last few months/year with "good days and bad days." stated there was no evidence of trauma or hitting his head when he was found this am. He apparently vomited prior to arrival in the ER. Upon ER presentation via EMS a CT head showed massive left-sided intra-cranial hemorrhage with hydrocephalus and severe midline shift. Discussions were held with the family, and a decision was made to pursue comfort care pathway. Principal Diagnosis Intracerebral hemorrhage. Discharge Data Allergies Allergy/AdvReac Type Severity Reaction Status Date / Time No Known Allergies Allergy Unverified 04/28/19 04:02 Consultations 04/28/19 05:24 ED Decision to Admit Stat 04/28/19 10:18 Consult Palliative Care Routine Ordered Studies 04/28/19 03:50 CT head/brain wo con Urgent 04/28/19 03:59 CT cervical spine wo con Urgent Hospital Course (1) Admission for palliative care: patient likely had a very large, catastrophic left-sided hemorrhagic stroke in the setting of chronic anticoagulation. There are no signs that he fell and hit his head leading to the ICH. Regardless of specific etiology this event is life-altering and catastrophic. Plan -- * institute comfort care measures/pathway * palliative care consultation for family support * support from [facility] and community * morphine drip; titrate for comfort * scopalamine patch * ativan prn * O2 for respiratory distress * keen catheter Pronouncement Note Date and Time of Date of : 04/29/19 Time of : 19:37 PCOD Preliminary cause of : Acute intracerebral hemorrhage Contributing Factors (1) Admission for palliative care: (2) Acute intracerebral hemorrhage: (3) AMS (altered mental status): (4) Acute hypercapnic respiratory failure: (5) Increased intracranial pressure: (6) Vomiting: (7) Chronic anticoagulation: (8) Benign essential tremor: (9) Parkinsons: (10) History of pulmonary embolism: (11) Hypercoagulable state, primary: (12) HLD (hyperlipidemia): (13) TIA (transient ischemic attack): Summary Additional details: Nursing paged me to examine the patient at 7:32pm. PT unresponsive, even to painful stimuli, pupils fixed and nonreactive. Pt has no spontaneous breathing, no heart sounds or breath sounds. No carotid or femoral pulses present. No heart sounds heard. Time of pronounced at 7:37pm on 04/29/2019. Additional Data Confirmation of : no pulse Family: at bedside Attending/PCP notified?: No Attending physician: Faisal Bernardo MD Was code activated?: No Autopsy requested?: No sock lining examiner notified?: No Organ bank notified?: No Resident Activity Tracking Resident Involvement: Resident Care Provided Care Provided: Adult Hospital Medicine Signed By:<Electronically signed by Jose Angel Lucero DO>04/29/192020 <Electronically signed by Lex Root DO>04/30/19 06 Created: 04/29/192014 The status of this report is Signed. Draft = Not yet reviewed or approved by Medical Physician. Signed = Reviewed and approved by Medical Physician. Total Time Total Time Spent Total Time Spent (In Minutes): 20 Discharge Plan Discharge Items Patient Disposition: Reason For Visit: ALTERED MENTAL STATUS Follow-up/Referrals: Guillermo Jain MD [Primary Care Provider] - Admission Data Admit Date/Time: 04/28/19 08:23 Other DC Date/Time DO NOT enter until pt leaves facility: 04/29/19 22:55 Coding Level of Care Code None Diagnoses Admission for palliative care Z51.5
== END 2019-04-29 22:55 | disposition expired | DRG 951 ==
LOC: ED 03:46 → SUATTDRO 08:23 → 4W 08:23